=== PATIENT | male | born 2000 | race African-American/Black ===

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

== ENCOUNTER 2018-01-04 17:57 | Emergency (ER) | payer BC, OTHER ==
--- NOTE | 2018-01-04 18:13 | PDOC ---
Rapid Medical Evaluation Time Seen by Provider: 01/04/18 18:10 Medical Evaluation: Allergies Allergy/AdvReac Type Severity Reaction Status Date / Time peach Allergy Verified 07/12/17 16:01 strawberry Allergy Verified 07/12/17 16:01 01/04/18 18:10 I have performed a brief in-person evaluation of this patient. The patient presents with a chief complaint of: autistic male hit R side of face against closet while agitated, no LOC Pertinent physical exam findings: erythema to R cheek I have ordered the following: nothing The patient will proceed to the ED for further evaluation. Discharge Disposition - Diagnosis Facial injury - Referrals - Patient Instructions - Post Discharge Activity
[2018-01-04 18:15] VITALS: BP 100/69; PULSE 95
--- NOTE | 2018-01-04 20:26 | PDOC ---
History of Present Illness - General Chief Complaint: Injury Stated Complaint: EYE PAIN Time Seen by Provider: 01/04/18 18:10 History Source: Care Provider (staff from facility) Exam Limitations: No Limitations - History of Present Illness Initial Comments: 01/04/18 20:46 CHIEF COMPLAINT: Swelling to right lateral upper cake HISTORY OF PRESENT ILLNESS: Patient is a 17-year-old male from [facility] with history of autism. Presents for evaluation of swelling to right lateral upper cheek and right lateral eye staff reports the patient banged his head against a wall during a behavioral outburst. I is intact, superficial swelling with no visible deformity. No entrapment. PMH: [Autism, behavioral disorder, OCD] MEDS:[ See medication list] ALLERGIES: [Peaches and strawberries] PCP: Dr. Payne[] REVIEW OF SYSTEMS: GENERAL/CONSTITUTIONAL: Awake alert and oriented HEAD, EYES, EARS, NOSE AND THROAT: No change in vision. Swelling to right lateral upper cheek and right lateral eye with no bruising. NO active bleeding. Nares intact. RESPIRATORY: No cough, wheezing, or hemoptysis. CARDIAC: Denies chest pain, no shortness of breathe. MUSCULOSKELETAL: No spinal point tenderness, Good ROM to all four extremeties. NO CVA tenderness. [No] lateral neck pain. GI/: Denies abdominal pain, no nausea or vomiting, no bloody stool, no Hematuria. SKIN : No erythema or bruising noted. No abrasion or lacerations. NEUROLOGIC: No loss of consciousness, no numbness or tingling. PHYSICAL EXAM: GENERAL: Awake and alert and oriented x3. EYES: The pupils are equal, round, and reactive to light, with clear, conjunctiva. Good extraocular movement. No nystagmus. No entrapment NOSE: No nasal trauma . Midface stable MOUTH: Teeth intact. EARS: The ear canals and tympanic membranes are normal without trauma. No drainage. NECK: No Lower cervical C-spine tenderness, no pain with chin to chest. CHEST: The lungs are clear without crackles, or wheezes. No subcutaneous emphysema. No crepitus. HEART: Heart is regular rhythm, with normal S1 and S2, no murmurs. ABDOMEN: The abdomen is soft and nontender with normal bowel sounds. There is no guarding or rebound. MUSCULOSKELETAL: No spinal point tenderness. No bruising or erythema. Pelvis stable. EXTREMITIES: Extremities are normal. No visible traumatic injury. NEUROLOGICAL: Patient baseline is normal SKIN: Without edema, erythema or bruising. No abrasions or lacerations. Swelling to right lateral upper cheek no bruising, no step-off, no pain on palpation 01/04/18 20:51 Past History - Past Medical History Allergies/Adverse Reactions: Allergies Allergy/AdvReac Type Severity Reaction Status Date / Time peach Allergy Verified 01/04/18 18:10 strawberry Allergy Verified 01/04/18 18:10 Home Medications: Ambulatory Orders Acetaminophen 650 mg PO Q4H PRN 05/28/17 Aripiprazole 10 mg PO HS 05/28/17 Aripiprazole 15 mg PO DAILY 05/28/17 Benztropine Mesylate 1 mg PO TID 05/28/17 Loperamide HCl [Loperamide] 2 mg PO Q8H PRN 05/28/17 Polyethylene Glycol 3350 [Glycolax] 119 gm PO TID 05/28/17 Sennosides [Ex-Lax] 15 mg PO PRN PRN 05/28/17 Sennosides [Senna] 2 tab PO TID 05/28/17 Oxcarbazepine [Trileptal -] 150 mg PO BID 01/04/18 Oxcarbazepine [Trileptal -] 300 mg PO BID 01/04/18 COPD: No Psychiatric Problems: Yes (AUTISM,OCD) - Suicide/Smoking/Psychosocial Hx Smoking History: Never smoked Have you smoked in the past 12 months: No Information on smoking cessation initiated: No Hx Alcohol Use: No Drug/Substance Use Hx: No Substance Use Type: None *Physical Exam - Vital Signs Last Vital Signs Temp Pulse Resp BP Pulse Ox 95 H 18 100/69 100 01/04/18 18:11 01/04/18 18:11 01/04/18 18:11 01/04/18 18:11 Medical Decision Making - Medical Decision Making 01/04/18 20:50 A/P: Facial trauma, orbital is intact with no entrapment. I spoke to , patient with no clinical evidence of orbital fracture no pain on palpation, no step-off. I will discharge patient home on Tylenol M.D. agrees with plan of care. Ice to area. *DC/Admit/Observation/Transfer Diagnosis at time of Disposition: Facial injury Qualifiers: Encounter type: initial encounter Qualified Code(s): S09.93XA - Unspecified injury of face, initial encounter - Discharge Dispostion Disposition: HOME Condition at time of disposition: Stable Admit: No - Referrals - Patient Instructions Printed Discharge Instructions: DI for Closed Head Injury Additional Instructions: Please monitor for any increased swelling, pain, or any other concerns. Tylenol for pain. - Post Discharge Activity
== END 2018-01-04 20:53 | disposition home or self-care (01) ==
LOC: JERFT 17:57
DX: S09.93XA Unspecified injury of face, initial encounter (principal); W22.01XA Walked into wall, initial encounter; Y93.89 Activity, other specified; Y92.199 Unspecified place in other specified residential institution as the place of occurrence of the external cause; F84.0 Autistic disorder
CPT/HCPCS: 99281-25

== ENCOUNTER 2018-08-07 21:28 | Emergency (ER) | payer BC, OTHER ==
--- NOTE | 2018-08-07 21:39 | PDOC ---
History of Present Illness - General Chief Complaint: Blood Pressure Problem Stated Complaint: Blood Pressure Problem Time Seen by Provider: 08/07/18 21:37 - History of Present Illness Initial Comments: 08/07/18 21:41 17 yo M w/ a hx of severe Autism (non verbal), OCD, and a seizure presents from [facility] brought in by EMS. EMS states that he was away visiting his biological father and when he returned to the home he was lethargic and hypotensive so they called EMS and had him brought to the ER. No further history was given. He is accompanied by a worker from [facility] who states that the patient looks like his usual self and does not believe the patient needs to be in the ER. Allergies: Peaches and strawberries. 08/07/18 21:43 08/07/18 21:55 08/07/18 21:56 Past History - Past Medical History Allergies/Adverse Reactions: Allergies Allergy/AdvReac Type Severity Reaction Status Date / Time peach Allergy Verified 01/04/18 18:10 strawberry Allergy Verified 01/04/18 18:10 Home Medications: Ambulatory Orders Acetaminophen 650 mg PO Q4H PRN 05/28/17 Aripiprazole 10 mg PO HS 05/28/17 Aripiprazole 15 mg PO DAILY 05/28/17 Benztropine Mesylate 1 mg PO TID 05/28/17 Loperamide HCl [Loperamide] 2 mg PO Q8H PRN 05/28/17 Polyethylene Glycol 3350 [Glycolax] 119 gm PO TID 05/28/17 Sennosides [Ex-Lax] 15 mg PO PRN PRN 05/28/17 Sennosides [Senna] 2 tab PO TID 05/28/17 Oxcarbazepine [Trileptal -] 150 mg PO BID 01/04/18 Oxcarbazepine [Trileptal -] 300 mg PO BID 01/04/18 COPD: No Psychiatric Problems: Yes (AUTISM,OCD) - Suicide/Smoking/Psychosocial Hx Smoking History: Never smoked Have you smoked in the past 12 months: No Hx Alcohol Use: No Drug/Substance Use Hx: No Substance Use Type: None Review of Systems - Review of Systems Able to Perform ROS?: No (Patient is non-verbal) *Physical Exam - Physical Exam Comments: 08/07/18 21:57 GENERAL: Patient is non-verbal and appears to be resting comfortably on the bed. He is well developed, well nourished. He does not appear to be in any distress. HEENT: Normocephalic, atraumatic. PERRLA, EOMI. No conjunctival pallor. Sclera are non- icteric. Moist mucous membranes. Oropharynx is clear. NECK: Supple. Full ROM. No JVD. Carotid pulses 2+ and symmetric, without bruits. No thyromegaly. No lymphadenopathy. CARDIOVASCULAR: Regular rate and rhythm. No murmurs, rubs, or gallops. Distal pulses are 2+ and symmetric. PULMONARY: No evidence of respiratory distress. Lungs clear to auscultation bilaterally. No wheezing, rales or rhonchi. ABDOMINAL: Soft. Non-tender. Non-distended. No rebound or guarding. No organomegaly. Normoactive bowel sounds. MUSCULOSKELETAL Normal range of motion at all joints. No bony deformities or tenderness. No CVA tenderness. EXTREMITIES: No cyanosis. No clubbing. No edema. No calf tenderness. SKIN: Warm and dry. Normal capillary refill. No rashes. No jaundice. NEUROLOGICAL: Normoreflexic in the upper and lower extremities. Toes are down-going bilaterally. Gait is normal without ataxia. ED Treatment Course - LABORATORY CBC & Chemistry Diagram: 08/07/18 22:08 08/07/18 22:08 Medical Decision Making - Medical Decision Making 08/07/18 21:59 17 yo M w/ a hx of severe Autism (non verbal), OCD, and a seizure presents from [facility] brought in by EMS due to hypotension and lethargy. Here in the ER he is not hypotensive (100/69 - same as prior visits) and his vitals are WNL. Aid states patient looks normal. Rectal Temp was not elevated. Plan: Cbc, Cmp, observe, re-assess. If Labs normal will DC patient back to [facility]. Labs are similar to how they were in prior visits. Will DC. 08/07/18 22:51 *DC/Admit/Observation/Transfer Diagnosis at time of Disposition: Abnormal vital signs - Discharge Dispostion Disposition: [facility] FACILITY Condition at time of disposition: Stable Decision to Admit order: No - Referrals Referrals: Claire Payne MD [Primary Care Provider] - - Patient Instructions Printed Discharge Instructions: DI for High Blood Pressure, How to Monitor Your Blood Pressure at Home Additional Instructions: Please continue to measure the vital signs. If he develops abnormal vital signs , a bad fever, starts vomiting, has a seizure or any other concerning symtpoms please send him back to the ER. Print Language: ROMANIAN - Post Discharge Activity
[2018-08-07 21:41] VITALS: BMI 21.5
[2018-08-07 22:15] LABS: BASO % 0.4 % (0-2.0); EOS % 1.8 % (0-4.5); HEMATOCRIT 37.1 % (35.4-49); HEMOGLOBIN 12.7 GM/dL (11.7-16.9); LYMPH % 28.9 % (8-40); MCH 30.9 pg (25.7-33.7); MCHC 34.2 g/dl (32.0-35.9); MEAN CELL VOLUME 90.4 fl (80-96); MEAN PLT VOLUME 11.6 fl (7.5-11.1); MONO % 11.9 % (3.8-10.2); PLATELET COUNT 61 K/MM3 (134-434); RBC 4.11 M/mm3 (4.00-5.60); RDW 13.6 % (11.9-15.9)
[2018-08-07 22:24] VITALS: TEMP 96.9
[2018-08-07 22:27] VITALS: BP 99/61; PULSE 78
--- NOTE | 2018-08-07 22:46 | PDOC ---
Attending Attestation - Resident Resident Name: Brian May - ED Attending Attestation I have performed the following: I have examined & evaluated the patient, The case was reviewed & discussed with the resident, I agree w/resident's findings & plan - HPI HPI: 08/07/18 22:45 Pt comes from residential for hypotension. - Physicial Exam PE: 08/07/18 22:45 Agree with resident exam. Pt is stable hemodynamically and appears well. - Medical Decision Making 08/07/18 22:45 Pt has normal CBC; Hb/HCT stable. 08/08/18 01:55 Pt is stable to go home. BP is low, but it is his usual BP level.
[2018-08-07 22:49] LABS: ALBUMIN 3.7 g/dl (3.4-5.0); ALK PHOS 264 U/L (45-117); ANION GAP 11 MMOL/L (8-16); BILIRUBIN,TOTAL 0.4 mg/dL (0.2-1.0); BLOOD UREA NITROGEN 16 mg/dL (7-18); CALCIUM 8.3 mg/dL (8.5-10.1); CHLORIDE 100 mmol/L (98-107); CO2 32 mmol/L (21-32); GLUCOSE,RANDOM 105 mg/dL (74-106); POTASSIUM 3.7 mmol/L (3.5-5.1); SGOT/AST 101 U/L (15-37); SGPT/ALT 164 U/L (13-61); SODIUM 143 mmol/L (136-145); TOT PROT 6.6 g/dl (6.4-8.2)
[2018-08-07 23:04] LABS: PLATELET ESTIMATE MOD DECREASED
== END 2018-08-07 23:43 ==
LOC: JER 21:28
DX: I95.9 Hypotension, unspecified (principal); F84.0 Autistic disorder; F42.9 Obsessive-compulsive disorder, unspecified
CPT/HCPCS: 36415; 80053; 85025; 99282-25

== ENCOUNTER 2024-07-19 11:15 | Emergency (ER) | payer BC, OTHER ==
[2024-07-19 11:24] VITALS: BMI 26.6
[2024-07-19] MEDS ORDERED: KETAMINE HCL 200 MG/20 ML VIAL ONE (11:38)
[2024-07-19 12:05] VITALS: BP 102/74; PULSE 90; RESP 19
== END 2024-07-19 12:20 | disposition home or self-care (01) ==
LOC: JER 11:15
DX: R19.7 Diarrhea, unspecified (principal); R14.0 Abdominal distension (gaseous)
CPT/HCPCS: 99282-25